=== PATIENT | female | born 2000 | race African-American/Black ===

== ENCOUNTER 2021-06-07 12:17 | Emergency (ER) | payer MEDICAID ==
[~2021-06-07] VITALS: Ht 160 cm; Wt 68.0 kg
[2021-06-07 13:50] VITALS: BP 105/56
[2021-06-07] MEDS ORDERED: IBUP-2030 PO (15:31)
[2021-06-07] MEDS ORDERED: AMOX-424 PO (15:31)
== END 2021-06-07 15:52 | disposition home or self-care (01) ==
LOC: ER 12:17
DX: K04.7 Periapical abscess without sinus (principal); J45.909 Unspecified asthma, uncomplicated; Z88.2 Allergy status to sulfonamides; Z79.899 Other long term (current) drug therapy
CPT/HCPCS: 99283